=== PATIENT | male | born 1960 | race African-American/Black ===

== ENCOUNTER 2022-11-09 18:07 | Emergency (ER) | payer MEDICAID ==
[~2022-11-09] VITALS: Ht 175.3 cm; Wt 73.0 kg
[2022-11-09 18:12] VITALS: TEMP 97.6; O2SAT 100
[2022-11-09 18:30] VITALS: BP 126/70; PULSE 82; RESP 20
[2022-11-09] MEDS ORDERED: KETOROLAC 30MG/ML VIAL IM ONE (18:30)
[2022-11-09] MEDS ORDERED: IBUP-2029 MT (19:30)
== END 2022-11-09 20:13 | disposition home or self-care (01) ==
LOC: ER 18:07
DX: S83.92XA Sprain of unspecified site of left knee, initial encounter (principal); S93.402A Sprain of unspecified ligament of left ankle, initial encounter; E11.9 Type 2 diabetes mellitus without complications; I10 Essential (primary) hypertension; Z88.0 Allergy status to penicillin; X58.XXXA Exposure to other specified factors, initial encounter; Y93.89 Activity, other specified; Y92.89 Other specified places as the place of occurrence of the external cause; Y99.8 Other external cause status
CPT/HCPCS: 99284; 73560; 73590; 73610; 73620; J1885